=== PATIENT | female | born 1990 | race African-American/Black ===

== ENCOUNTER 2017-06-16 17:14 | Emergency (ER) | payer SELFPAY ==
[~2017-06-16] VITALS: Ht 165.1 cm; Wt 91.0 kg
[2017-06-16 17:30] VITALS: BP 122/60
[2017-06-16] MEDS ORDERED: VISCOUS LIDOCAINE 2% 15 ML UDC MM STA (21:37)
[2017-06-16] MEDS ORDERED: MAGNESIUM/ALUMINUM HYDROXIDE/SIMETHICONE 30ML UDC PO ONE (21:45)
[2017-06-16] MEDS ORDERED: FAMOTIDINE 20MG TABLET PO ONE (21:45)
[2017-06-16] MEDS ORDERED: ACETAMINOPHEN WITH CODEINE 300/30MG TABLET PO ONE (22:00)
== END 2017-06-16 22:32 | disposition home or self-care (01) ==
LOC: ER 17:30
DX: K08.9 Disorder of teeth and supporting structures, unspecified (principal); K27.9 Peptic ulcer, site unspecified, unspecified as acute or chronic, without hemorrhage or perforation; J45.909 Unspecified asthma, uncomplicated; F12.10 Cannabis abuse, uncomplicated; Z88.6 Allergy status to analgesic agent; Z88.5 Allergy status to narcotic agent; Z98.890 Other specified postprocedural states
CPT/HCPCS: 99284

== ENCOUNTER 2017-09-14 12:33 | Emergency (ER) | payer SELFPAY ==
[~2017-09-14] VITALS: Ht 165.1 cm; Wt 98.0 kg
[2017-09-14 17:29] VITALS: BP 122/78
== END 2017-09-14 17:30 | disposition home or self-care (01) ==
LOC: ER 12:33
DX: B35.4 Tinea corporis (principal); Z88.5 Allergy status to narcotic agent
CPT/HCPCS: 99283

== ENCOUNTER 2018-05-23 06:48 | Emergency (ER) | payer SELFPAY ==
[~2018-05-23] VITALS: Ht 165.1 cm; Wt 95.0 kg
[2018-05-23 07:06] VITALS: BP 109/52
== END 2018-05-23 09:45 | disposition left against medical advice (07) ==
LOC: ER 08:25
DX: R21 Rash and other nonspecific skin eruption (principal); Z98.890 Other specified postprocedural states; Z53.21 Procedure and treatment not carried out due to patient leaving prior to being seen by health care provider

== ENCOUNTER 2018-09-10 10:13 | Emergency (ER) | payer SELFPAY ==
[~2018-09-10] VITALS: Ht 167.6 cm; Wt 94.0 kg
[2018-09-10] MEDS ORDERED: ACETAMINOPHEN 325MG TABLET PO ONE (11:00)
[2018-09-10 11:17] VITALS: BP 113/66
== END 2018-09-10 12:28 | disposition home or self-care (01) ==
LOC: ER 10:52
DX: M79.671 Pain in right foot (principal); F17.200 Nicotine dependence, unspecified, uncomplicated; Z98.890 Other specified postprocedural states; Z88.5 Allergy status to narcotic agent
CPT/HCPCS: 73630; 81025; 99283; Z7610

== ENCOUNTER 2018-10-17 05:01 | Emergency (ER) | payer SELFPAY ==
[~2018-10-17] VITALS: Ht 165.1 cm; Wt 93.0 kg
[2018-10-17 08:43] VITALS: BP 124/70
== END 2018-10-17 08:45 | disposition home or self-care (01) ==
LOC: ER 05:01
DX: S56.111A Strain of flexor muscle, fascia and tendon of right index finger at forearm level, initial encounter (principal); M25.571 Pain in right ankle and joints of right foot; F17.200 Nicotine dependence, unspecified, uncomplicated; Z98.890 Other specified postprocedural states; Z88.5 Allergy status to narcotic agent; Z88.8 Allergy status to other drugs, medicaments and biological substances; X58.XXXA Exposure to other specified factors, initial encounter; Y93.89 Activity, other specified; Y92.89 Other specified places as the place of occurrence of the external cause; Y99.8 Other external cause status
CPT/HCPCS: 29130; 73610; 81025; 99283

== ENCOUNTER 2019-07-08 12:11 | Emergency (ER) | payer SELFPAY ==
[~2019-07-08] VITALS: Ht 165.1 cm; Wt 89.8 kg
[2019-07-08] MEDS ORDERED: CEPHALEXIN 250MG CAPSULE PO ONE (15:30)
[2019-07-08] MEDS ORDERED: SULFAMETHOXAZOLE/TRIMETHOPRIM 800/160MG TABLET PO ONE (15:30)
[2019-07-08] MEDS ORDERED: LIDOCAINE HCL/EPINEPHRINE 1%-EPI 1:100,000 20 ML VIAL INFIL ONE (15:30)
[2019-07-08] MEDS ORDERED: IBUPROFEN 600MG TABLET PO ONE (17:00)
[2019-07-08 17:20] VITALS: BP 135/79
== END 2019-07-08 17:21 | disposition home or self-care (01) ==
LOC: ER 12:11
DX: N61.1 Abscess of the breast and nipple (principal); J06.9 Acute upper respiratory infection, unspecified; Z98.890 Other specified postprocedural states
CPT/HCPCS: 10060; 87070; 87205; 99284; J3490; Z7610

== ENCOUNTER 2019-07-25 23:39 | Emergency (ER) | payer SELFPAY ==
[~2019-07-25] VITALS: Ht 167.6 cm; Wt 92.0 kg
[2019-07-26 00:17] VITALS: BP 123/74
[2019-07-26 02:18] LABS: CLARITY URINE CLEAR (CLEAR); COLOR URINE YELLOW (YELLOW); KETONES URINE NEGATIVE (NEGATIVE); LEUKOCYTE ESTERASE URINE 2+ (NEGATIVE); NITRITE URINE NEGATIVE (NEGATIVE); OCCULT BLOOD URINE NEGATIVE (NEGATIVE); PROTEIN URINE NEGATIVE (NEGATIVE)
[2019-07-26] MEDS ORDERED: FLUCONAZOLE 150MG TABLET PO ONE (03:15)
== END 2019-07-26 03:25 | disposition home or self-care (01) ==
LOC: ER 23:39
DX: B37.3 Candidiasis of vulva and vagina (principal); F12.10 Cannabis abuse, uncomplicated; Z98.890 Other specified postprocedural states
CPT/HCPCS: 81003; 81025; 87210; 99283

== ENCOUNTER 2020-03-11 19:55 | Emergency (ER) | payer MEDICAID ==
[~2020-03-11] VITALS: Ht 167.6 cm; Wt 95.0 kg
[2020-03-11 20:11] VITALS: BP 147/67
[2020-03-11] MEDS ORDERED: SODIUM CHLORIDE 0.9% 1,000 ML IV ONE (21:19)
[2020-03-11] MEDS ORDERED: ACETAMINOPHEN 325MG TABLET PO PRN (21:30)
[2020-03-11] MEDS ORDERED: ONDANSETRON HCL 4MG/2ML INJ IV ONE (21:30)
[2020-03-11 21:58] LABS: BASOPHILS % 0.3 % (0.0-2.0); EOSINOPHILS % 0.4 % (0.0-5.0); HEMATOCRIT. 34.7 % (36.0-48.0); HEMOGLOBIN. 11.7 g/dL (12.0-16.0); LYMPHOCYTES % 16.4 % (20.0-50.0); MEAN CORPUSCULAR HEMOGLOBIN 27.1 pg (28.0-32.0); MEAN PLATELET VOLUME 8.6 fl (7.4-10.4); NEUTROPHILS % 76.9 % (40.0-76.0); PLATELET 222 x1000/uL (130-400); RED BLOOD CELL COUNT 4.33 mill/uL (4.2-5.4); RED CELL DISTRIBUTION WIDTH 15.3 % (11.6-14.6)
[2020-03-11 22:06] LABS: CHLORIDE 109 mEq/L (98-107)
[2020-03-11 22:11] LABS: CLARITY URINE CLEAR (CLEAR); COLOR URINE YELLOW (YELLOW); KETONES URINE NEGATIVE (NEGATIVE); LEUKOCYTE ESTERASE URINE NEGATIVE (NEGATIVE); NITRITE URINE NEGATIVE (NEGATIVE); OCCULT BLOOD URINE NEGATIVE (NEGATIVE); PH URINE 5.5 (4.5-8.0); PROTEIN URINE NEGATIVE (NEGATIVE); SPECIFIC GRAVITY URINE 1.022 (1.005-1.030); UROBILINOGEN URINE 0.2 E.U./dL (0.2-1.0)
[2020-03-11 22:30] LABS: B-HCG QUANTITATIVE 20223 mIU/mL (<3)
== END 2020-03-12 01:13 | disposition home or self-care (01) ==
LOC: ER 19:55
DX: O26.892 Other specified pregnancy related conditions, second trimester (principal); R10.30 Lower abdominal pain, unspecified; Z3A.16 16 weeks gestation of pregnancy; Z76.0 Encounter for issue of repeat prescription
CPT/HCPCS: 36415; 76805; 80053; 81003; 84702; 85025; 86850; 86900; 86901; 96361; 96374; 99284; J2405; J7030

== ENCOUNTER 2020-04-17 12:17 | Observation (INO) | payer MEDICAID, OTHER ==
[~2020-04-17] VITALS: Ht 166.4 cm; Wt 94.3 kg
[2020-04-17] MEDS ORDERED: CITRIC ACID/SODIUM CITRATE SOLN 30ML UDC PO NR (13:00)
[2020-04-17 13:08] LABS: CLARITY URINE CLEAR (CLEAR); COLOR URINE YELLOW (YELLOW); KETONES URINE NEGATIVE (NEGATIVE); LEUKOCYTE ESTERASE URINE NEGATIVE (NEGATIVE); NITRITE URINE NEGATIVE (NEGATIVE); OCCULT BLOOD URINE NEGATIVE (NEGATIVE); PROTEIN URINE NEGATIVE (NEGATIVE); SPECIFIC GRAVITY URINE 1.018 (1.005-1.030)
[2020-04-17] MEDS ORDERED: DEXT 5%/LACTATED RINGERS 1,000 ML IV ONE (14:30)
[2020-04-17] MEDS ORDERED: PNV1TABL76 MT (15:18)
== END 2020-04-17 15:30 | disposition home or self-care (01) ==
LOC: 8 EST LDRP 12:17
PROVIDERS: ADMIT Obstetrics & Gynecology; ATTEND Obstetrics & Gynecology
DX: O26.892 Other specified pregnancy related conditions, second trimester (principal); R10.9 Unspecified abdominal pain; Z3A.21 21 weeks gestation of pregnancy
CPT/HCPCS: 36415; 59025; 76805; 80051; 81003; 96360; G0378; J7121; 99281

== ENCOUNTER 2020-04-24 18:13 | Observation (INO) | payer MEDICAID ==
[~2020-04-24] VITALS: Ht 160 cm; Wt 94.3 kg
[~2020-04-24 18:13] MED LIST: PNV1TABL76 MT
[2020-04-24 18:59] LABS: CLARITY URINE CLOUDY (CLEAR); COLOR URINE YELLOW (YELLOW); KETONES URINE NEGATIVE (NEGATIVE); LEUKOCYTE ESTERASE URINE TRACE (NEGATIVE); NITRITE URINE NEGATIVE (NEGATIVE); OCCULT BLOOD URINE NEGATIVE (NEGATIVE); PROTEIN URINE NEGATIVE (NEGATIVE); SPECIFIC GRAVITY URINE 1.021 (1.005-1.030); UROBILINOGEN URINE 0.2 E.U./dL (0.2-1.0)
[2020-04-24] MEDS ORDERED: LACTATED RINGERS 1,000 ML IV SCH (19:30)
[2020-04-24] MEDS ORDERED: CEFAZOLIN 2,000 MG in DEXT 5% WATER 100 ML IV SCH (21:00)
== END 2020-04-24 21:55 | disposition home or self-care (01) ==
LOC: 8 EST LDRP 18:13
PROVIDERS: ADMIT Obstetrics & Gynecology; ATTEND Obstetrics & Gynecology
DX: O26.892 Other specified pregnancy related conditions, second trimester (principal); R10.30 Lower abdominal pain, unspecified; Z3A.22 22 weeks gestation of pregnancy
CPT/HCPCS: 59025; 81003; 96365; 96366; G0378; J0690; J7060; 99281

== ENCOUNTER 2020-06-02 00:33 | Emergency (ER) | payer MEDICAID ==
[~2020-06-02] VITALS: Ht 165.1 cm; Wt 101.0 kg
[2020-06-02 01:43] VITALS: BP 125/69
== END 2020-06-02 02:57 | disposition left against medical advice (07) ==
LOC: EDSTATUS 00:33 → ER 00:33
DX: Z53.21 Procedure and treatment not carried out due to patient leaving prior to being seen by health care provider (principal)
CPT/HCPCS: 76805; 76818; 99281

== ENCOUNTER 2020-06-15 15:28 | Observation (INO) | payer MEDICAID ==
[~2020-06-15] VITALS: Ht 165.1 cm; Wt 100.0 kg
[2020-06-15 15:40] VITALS: BP 135/80
== END 2020-06-15 19:45 | disposition home or self-care (01) ==
LOC: ER 15:28 → 8 EST LDRP 15:47
PROVIDERS: ADMIT Obstetrics & Gynecology; ATTEND Obstetrics & Gynecology
DX: O26.893 Other specified pregnancy related conditions, third trimester (principal); R10.2 Pelvic and perineal pain; O99.891 Other specified diseases and conditions complicating pregnancy; M54.5 Low back pain; Z3A.29 29 weeks gestation of pregnancy
CPT/HCPCS: 59025; 76805; 76818; G0378; 99281

== ENCOUNTER 2020-06-17 10:18 | Observation (INO) | payer MEDICAID | END 2020-06-17 12:00 | disposition home or self-care (01) | LOC: 8EST NSY 10:18 → 8 EST A/PP 10:36 | PROVIDERS: ADMIT Obstetrics & Gynecology; ATTEND Obstetrics & Gynecology | DX: Z34.93 Encounter for supervision of normal pregnancy, unspecified, third trimester (principal); Z3A.29 29 weeks gestation of pregnancy | CPT/HCPCS: 59025; G0378; 99281 ==

== ENCOUNTER 2020-07-22 14:21 | Observation (INO) | payer MEDICAID ==
[2020-07-22] MEDS ORDERED: ACETAMINOPHEN 325MG TABLET PO NR (15:55)
[2020-07-22] MEDS ORDERED: LACTATED RINGERS 1,000 ML IV SCH (16:00)
[2020-07-22 16:10] LABS: BASOPHILS % 0.2 % (0.0-2.0); EOSINOPHILS % 0.4 % (0.0-5.0); HEMATOCRIT. 34.7 % (36.0-48.0); HEMOGLOBIN. 11.6 g/dL (12.0-16.0); LYMPHOCYTES % 16.3 % (20.0-50.0); MEAN CORPUSCULAR HEMOGLOBIN 26.7 pg (28.0-32.0); MEAN CORPUSCULAR VOLUME 79.8 fL (81.0-99.0); MEAN PLATELET VOLUME 9.4 fl (7.4-10.4); MONOCYTES % 10.6 % (2.0-8.0); NEUTROPHILS % 72.5 % (40.0-76.0); PLATELET 221 x1000/uL (130-400); RED BLOOD CELL COUNT 4.35 mill/uL (4.2-5.4); RED CELL DISTRIBUTION WIDTH 14.9 % (11.6-14.6)
[2020-07-22 16:23] LABS: CHLORIDE 108 mEq/L (98-107)
[2020-07-22 16:30] LABS: D-DIMER 1.36 mg/L FEU (<0.50); PARTIAL THROMBOPLASTIN TIME 28.2 sec (23.4-31.0); PROTHROMBIN TIME 10.6 sec (9.6-11.0)
[2020-07-22 18:08] LABS: CLARITY URINE CLEAR (CLEAR); COLOR URINE YELLOW (YELLOW); KETONES URINE NEGATIVE (NEGATIVE); LEUKOCYTE ESTERASE URINE NEGATIVE (NEGATIVE); NITRITE URINE NEGATIVE (NEGATIVE); OCCULT BLOOD URINE NEGATIVE (NEGATIVE); PROTEIN URINE NEGATIVE (NEGATIVE); SPECIFIC GRAVITY URINE 1.021 (1.005-1.030); UROBILINOGEN URINE 0.2 E.U./dL (0.2-1.0)
== END 2020-07-22 18:55 | disposition home or self-care (01) ==
LOC: 8EST 14:21 → 8 EST A/PP 14:43
PROVIDERS: ADMIT Obstetrics & Gynecology; ATTEND Obstetrics & Gynecology
DX: O26.893 Other specified pregnancy related conditions, third trimester (principal); H57.13 Ocular pain, bilateral; R20.2 Paresthesia of skin; Z3A.35 35 weeks gestation of pregnancy
CPT/HCPCS: 36415; 59025; 76805; 76818; 80053; 81003; 84550; 85025; 85379; 85384; 85610; 85730; 96360; 96361; G0378; 99281

== ENCOUNTER 2020-07-31 13:58 | Observation (INO) | payer MEDICAID ==
[~2020-07-31] VITALS: Ht 165.1 cm; Wt 108.9 kg
[2020-07-31 16:47] LABS: COLOR URINE YELLOW (YELLOW); KETONES URINE NEGATIVE (NEGATIVE); LEUKOCYTE ESTERASE URINE NEGATIVE (NEGATIVE); NITRITE URINE NEGATIVE (NEGATIVE); OCCULT BLOOD URINE NEGATIVE (NEGATIVE); PH URINE 7.5 (4.5-8.0); PROTEIN URINE NEGATIVE (NEGATIVE); SPECIFIC GRAVITY URINE 1.016 (1.005-1.030); UROBILINOGEN URINE 0.2 E.U./dL (0.2-1.0)
[2020-07-31 16:51] LABS: CLARITY URINE CLEAR (CLEAR)
== END 2020-07-31 17:30 | disposition home or self-care (01) ==
LOC: 8 EST LDRP 13:58
PROVIDERS: ADMIT Obstetrics & Gynecology; ATTEND Obstetrics & Gynecology
DX: O26.893 Other specified pregnancy related conditions, third trimester (principal); R10.9 Unspecified abdominal pain; Z3A.36 36 weeks gestation of pregnancy
CPT/HCPCS: 59025; 76815; 76818; 81003; G0378; 99281

== ENCOUNTER → 2020-08-17 | Outpatient (CLI) | payer MEDICAID ==
[~2020-08-17] MED LIST changes: +IBUP-2030 MT
== END | disposition home or self-care (01) ==
LOC: LAB 11:43
PROVIDERS: ATTEND Obstetrics & Gynecology
DX: Z20.822 Contact with and (suspected) exposure to COVID-19 (principal)
CPT/HCPCS: C9803; U0003

== ENCOUNTER 2021-05-20 20:31 | Emergency (ER) | payer MEDICAID ==
[~2021-05-20] VITALS: Ht 165.1 cm; Wt 97.0 kg
[2021-05-21 00:20] LABS: BASOPHILS % 0.3 % (0.0-2.0); EOSINOPHILS % 1.2 % (0.0-5.0); HEMATOCRIT. 33.6 % (36.0-48.0); HEMOGLOBIN. 11.1 g/dL (12.0-16.0); LYMPHOCYTES % 37.5 % (20.0-50.0); MEAN CORPUSCULAR HEMOGLOBIN 24.2 pg (28.0-32.0); MEAN CORPUSCULAR VOLUME 73.3 fL (81.0-99.0); MEAN PLATELET VOLUME 8.6 fl (7.4-10.4); MONOCYTES % 6.5 % (2.0-8.0); NEUTROPHILS % 54.5 % (40.0-76.0); PLATELET 256 x1000/uL (130-400); RED BLOOD CELL COUNT 4.59 mill/uL (4.2-5.4)
[2021-05-21 00:33] LABS: CHLORIDE 111 mEq/L (98-107)
[2021-05-21] MEDS ORDERED: NORE1TAB99 MT (01:51)
[2021-05-21] MEDS ORDERED: CEPH500C2 MT (01:53)
[2021-05-21] MEDS ORDERED: KETOROLAC 30MG/ML VIAL IM ONE (02:00)
[2021-05-21 02:20] VITALS: BP 105/65
== END 2021-05-21 02:21 | disposition home or self-care (01) ==
LOC: ER 20:31
DX: N60.01 Solitary cyst of right breast (principal); N93.9 Abnormal uterine and vaginal bleeding, unspecified; F12.10 Cannabis abuse, uncomplicated; Z98.890 Other specified postprocedural states; Z98.51 Tubal ligation status; Z79.899 Other long term (current) drug therapy
CPT/HCPCS: 36415; 76641; 76830; 76856; 80048; 81025; 85025; 96372; 99285; J1885